=== PATIENT | female | born 1990 | race Caucasian/White ===

== ENCOUNTER 2017-03-26 10:17 | Inpatient (IN) | payer OTHER ==
[~2017-03-26] VITALS: Ht 170.2 cm; Wt 123.2 kg
[2017-04-04] VITALS (51 sets, daily range): BP systolic 82–146; BP diastolic 50–90; PULSE 83–131; TEMP 97.4–98.3
[2017-04-04 08:14] LABS: BASO % 0.2 % (0.0-2.0); EOS % 0.1 % (0-4.0); GRAN # 7.9 (1.4-6.5); GRAN % 72.2 % (42.2-75.2); HEMATOCRIT 37.4 % (37.0-47.0); HEMOGLOBIN 12.8 g/dl (12.5-16.0); LYMPH # 2.1 (1.2-3.4); MEAN CELL VOLUME 83 fl (80.0-100.0); MEAN CORPUSCULAR HEMOGLOBIN 28 pg (27.0-31.0); MEAN CORPUSCULAR HGB CONC 34 g/dl (33.0-37.0); MEAN PLATELET VOLUME 11.2 fl (7.4-10.4); MONO # 0.9 (0.1-0.6); MONO % 7.9 % (1.7-9.3); PLATELET COUNT 255 K/mm3 (130-400); RED BLOOD COUNT 4.52 M/mm3 (4.10-5.30); REDCELL DISTRIBUTION WIDTH-CV 13.1 % (11.5-14.5); WHITE BLOOD COUNT 10.9 K/mm3 (4.8-10.8)
[2017-04-05 01:50] VITALS: BP 115/63; PULSE 83; TEMP 97.8
[2017-04-05 05:30] VITALS: BP 109/65; PULSE 75; TEMP 97.7
[2017-04-05 08:29] VITALS: BP 114/73; PULSE 78; TEMP 98.1
[2017-04-05] MEDS ORDERED: PERCOCET 325 MG1 TA2 PO (08:36)
[2017-04-05] MEDS ORDERED: IBU800 M1 PO (08:36)
[2017-04-05 16:11] VITALS: BP 94/48; PULSE 67; TEMP 97.8
[2017-04-05 21:30] VITALS: BP 102/61; PULSE 76; TEMP 97.9
[2017-04-06 07:00] VITALS: BP 114/66; PULSE 73; TEMP 97.8
== END 2017-04-06 12:35 | disposition home or self-care (01) | DRG 775 ==
LOC: EDSTATUS 10:17 → LDRO 11:00 → OB 04-04 07:03 → LDR 04-04 07:03 → OB 04-04 22:15
PROVIDERS: Obstetrics & Gynecology
PROC: 10D07Z6 Extraction of Products of Conception, Vacuum, Via Natural or Artificial Opening (ICD-10-PCS; principal; 2017-04-04)
PROC: 0HQ9XZZ Repair Perineum Skin, External Approach (ICD-10-PCS; 2017-04-04)
DX: O99.824 Streptococcus B carrier state complicating childbirth (principal); O70.0 First degree perineal laceration during delivery; Z3A.39 39 weeks gestation of pregnancy; Z37.0 Single live birth
CPT/HCPCS: J2540; J2590; J7120

== ENCOUNTER 2022-07-15 06:01 | Emergency (ER) | payer BC ==
[~2022-07-15 06:01] MED LIST: IBU800 M1 PO; PERCOCET 325 MG1 TA2 PO
[2022-07-15 06:44] LABS: COLLECTION METHOD CLEAN CATCH
[2022-07-15 06:47] LABS: BASO % 0.3 % (0.0-2.0); EOS % 0.2 % (0.0-4.0); GRAN % 73.2 % (42.2-75.2); HEMATOCRIT 45.2 % (37.0-47.0); HEMOGLOBIN 15.7 g/dl (12.5-16.0); LYMPH # 1.8 K/mm3 (1.2-3.4); LYMPH % 18.2 % (20.0-51.0); MEAN CELL VOLUME 87 fl (80.0-100.0); MEAN CORPUSCULAR HEMOGLOBIN 30 pg (27-31); MEAN CORPUSCULAR HGB CONC 35 g/dl (33.0-37.0); MEAN PLATELET VOLUME 9.8 fl (7.4-10.4); MONO # 0.8 K/mm3 (0.1-0.6); MONO % 7.9 % (1.7-9.3); PLATELET COUNT 251 K/mm3 (130-400); RED BLOOD COUNT 5.17 M/mm3 (4.10-5.30); REDCELL DISTRIBUTION WIDTH-CV 11.9 % (11.5-14.5)
[2022-07-15 06:58] LABS: URINE APPEARANCE Clear (CLEAR/HAZY); URINE COLOR Yellow (YELLOW)
[2022-07-15 06:59] LABS: PH 5.5 (5.0-8.5); URINE KETONE 4+ (NEGATIVE); URINE PROTEIN(semi-quant) 1+ (NEGATIVE)
[2022-07-15 07:00] LABS: URINE BLOOD Negative (NEGATIVE); URINE GLUCOSE Negative (NEGATIVE); URINE NITRATE Negative (NEGATIVE); URINE UROBILINOGEN 0.2 E.U/dL (0.2-1.0)
[2022-07-15 07:06] LABS: ALANINE AMINOTRANSFERASE 15 U/L (0-55); ALBUMIN 4.4 gm/dL (3.5-5.0); ALKALINE PHOSPHATASE 44 U/L (40-150); ANION GAP 14 mmol/L (7-16); AST,SGOT 18 U/L (5-34); BILIRUBIN,TOTAL 0.8 mg/dL (0.2-1.2); BLOOD UREA NITROGEN 8 mg/dL (7-19); CALCIUM 9.5 mg/dL (8.4-10.2); CARBON DIOXIDE 18 mmol/L (22-29); CHLORIDE 105 mmol/L (98-107); CREATININE, serum 0.78 mg/dL (0.57-1.11); GLUCOSE 97 mg/dL (70-99); POTASSIUM 3.3 mmol/L (3.5-4.5); SODIUM 137 mmol/L (136-145)
[2022-07-15 07:08] LABS: ACETAMINOPHEN < 1.0 ug/mL (10-30); ALCOHOL(ethanol),MEDICAL < 10 mg/dL (0-10); SALICYLATE < 5.0 mg/dL (15.0-30.0)
[2022-07-15 07:10] LABS: MUCOUS Present (NOT PRESENT); URINE BACTERIA None Seen /hpf (NONE SEEN)
[2022-07-15 07:15] LABS: TRICYCLIC ANTIDEPRESS URINE NEGATIVE
[2022-07-15 20:02] VITALS: BP 113/72; PULSE 92; TEMP 98.9
== END 2022-07-15 20:19 ==
LOC: COL.ER 06:01
PROVIDERS: Emergency Medicine
DX: F22 Delusional disorders (principal)